=== PATIENT | male | born 1970 | race Caucasian/White ===

== ENCOUNTER 2017-03-16 11:02 | Emergency (ER) | payer OTHER ==
[2017-03-16 11:07] VITALS: BMI 28.2
--- NOTE | 2017-03-16 11:36 | PDOC ---
History of Present Illness - General Chief Complaint: Pain Stated Complaint: BACK PAIN/flank/abd Time Seen by Provider: 03/16/17 11:34 History Source: Patient Exam Limitations: No Limitations - History of Present Illness Initial Comments: 03/16/17 11:53 My chief complaint: Left lower back pain radiating to her left lower abdomen with urinary frequency at night mostly History of present illness: Pt.is a 46-year-old male with a history of renal calculi 8 years ago last episode here today complaining of left flank pain with radiation to left lower abdomen 2 weeks worse today. Patient reports that pain today is a 9 out of 10. Patient took ibuprofen in early a.m. today with without relief of pain. Patient reports that he is getting up more frequently at night to urinate 3 times which is not normal for himself. Patient denies any hematuria , dysuria or difficulty starting stream a urine. Patient denies any chills, nausea or vomiting or any fever. 03/16/17 13:39 Timing/Duration: getting worse (FOR 2 WEEKS WORSE TODAY) Severity: severe (LEFT LOWER BACK RADIATES TO LEFT LOWER QUADRANT) Associated Symptoms: reports: denies symptoms Past History - Past Medical History Allergies/Adverse Reactions: Allergies Allergy/AdvReac Type Severity Reaction Status Date / Time Penicillins Allergy Mild Rash Verified 09/07/14 06:30 Home Medications: Ambulatory Orders Naproxen [Naprosyn -] 500 mg PO BID PRN #14 tablet MDD 2 03/16/17 Phenazopyridine HCl [Pyridium] 200 mg PO TID #6 tablet 03/16/17 Other medical history: kidney stone - Surgical History Abdominal Surgery: Yes Appendectomy: Yes - Immunization History Immunization Up to Date: Yes - Suicide/Smoking/Psychosocial Hx Smoking Status: No Smoking History: Never smoked Number of Cigarettes Smoked Daily: 0 Information on smoking cessation initiated: No Hx Alcohol Use: No Drug/Substance Use Hx: No Substance Use Type: None Review of Systems - Review of Systems Able to Perform ROS?: Yes Constitutional: No: Symptoms Reported HEENTM: No: Symptoms Reported Respiratory: No: Symptoms reported Cardiac (ROS): No: Symptoms Reported ABD/GI: Yes: Other (LEFT LOWER QUADRANT TENDERNESS ) Musculoskeletal: Yes: Back Pain (LEFT FLANK AREA RADIATES TO LEFT LOWER ABDOMINAL QUADRANT) Integumentary: No: Symptoms Reported Neurological: No: Symptoms reported *Physical Exam - Vital Signs Last Vital Signs Temp Pulse Resp BP Pulse Ox 98.5 F 85 18 139/91 99 03/16/17 11:05 03/16/17 11:05 03/16/17 11:05 03/16/17 11:05 03/16/17 11:05 - Physical Exam General Appearance: Yes: Appropriately Dressed Respiratory/Chest: positive: Lungs Clear, Normal Breath Sounds. negative: Chest Tender, Respiratory Distress Cardiovascular: positive: Regular Rhythm, Regular Rate, S1, S2 Gastrointestinal/Abdominal: positive: Normal Bowel Sounds, Tender (LEFT LOWER QUADRANT), Soft, Tenderness (LEFT LOWER QUADRANT). negative: Organomegaly, Distended, Guarding, Rebound, Hepatomegaly, Spleenomegaly Musculoskeletal: positive: Normal Inspection, CVA Tenderness (L). negative: CVA Tenderness (R), Vertebral Tenderness Integumentary: positive: Normal Color Neurologic: positive: Alert, Normal Response, Responsive ED Treatment Course - LABORATORY CBC & Chemistry Diagram: 03/16/17 11:18 03/16/17 12:00 Medical Decision Making - Medical Decision Making 03/16/17 11:58 Pt.is a 46-year-old male with a history of renal calculi 8 years ago last episode here today complaining of left flank pain with radiation to left lower abdomen 2 weeks worse today. Patient reports that pain today is a 9 out of 10. Patient took ibuprofen in early a.m. today with without relief of pain. Patient reports that he is getting up more frequently at night to urinate 3 times which is not normal for himself. Patient denies any hematuria, dysuria or difficulty starting stream a urine. Patient denies any chills, nausea or vomiting or any fever. R/o RENAL CALCULI renal calculi right kidney enlarged prostate PLAN: U/A URINE C & S CBC WITH DIFF CMP CT SPIRAL RENAL fatty liver. For him M nonobstructing right renal lower pole stone. Otherwise there is no evidence of hydro-your tender for 06 or urethral stone bilaterally. Partially distended urinary bladder limiting its evaluation without gross evidence of an intraluminal stone. No evidence of bowel obstruction. A few diverticuli in the colon without evidence of acute diverticulitis. Nonvisualization of the appendix (patient had appendectomy) prominent prostate gland per Dr. Tenorio IV INSERT TORADOL 30 MG IV PUSH NOW 03/16/17 11:59 03/16/17 12:50 Laboratory Tests 03/16/17 03/16/17 03/16/17 11:18 11:18 12:00 WBC 5.6 RBC 5.31 Hgb 16.1 Hct 47.8 MCV 90.1 MCH 30.4 MCHC 33.7 RDW 14.1 Plt Count 222 MPV 8.4 Neutrophils % 54.8 Lymphocytes % 28.8 Monocytes % 10.0 Eosinophils % 5.4 H Basophils % 1.0 Sodium 139 Potassium 4.0 Chloride 104 Carbon Dioxide 28 Anion Gap 7 L BUN 12 Creatinine 0.8 Creat Clearance w eGFR > 60 Random Glucose 85 Calcium 9.2 Total Bilirubin 0.6 AST 39 H ALT 93 H D Alkaline Phosphatase 88 Total Protein 7.5 Albumin 4.2 Urine Color Yellow Urine Appearance Clear Urine pH 7.0 Ur Specific [place] Pending Urine Protein Negative Urine Glucose (UA) Negative Urine Ketones Negative Urine Blood Negative Urine Nitrite Negative Urine Bilirubin Negative Urine Urobilinogen Negative Ur Leukocyte Esterase Negative 03/16/17 12:51 03/16/17 13:39 03/16/17 13:44 will give RX for pyridium 200 mg tid ac for 2 days Naprosyn 500 mg bid prn pain # 4 tabs 03/17/17 11:51 *DC/Admit/Observation/Transfer Diagnosis at time of Disposition: Renal calculus, right, Flank pain, Abdominal discomfort in left lower quadrant - Discharge Dispostion Disposition: HOME Condition at time of disposition: Stable - Prescriptions Prescriptions: Naproxen [Naprosyn -] 500 mg PO BID PRN #14 tablet MDD 2 PRN Reason: Pain Phenazopyridine HCl [Pyridium] 200 mg PO TID #6 tablet - Referrals Referrals: Wili Salvador MD [Staff Physician] - Bryce Evangelista MD [Staff Physician] - - Patient Instructions Additional Instructions: Follow Up with your primary care provider within the next 2 days follow-up with urologist for further evaluation as soon as possible Follow up with Gastrointestinal doctor for elevated liver function tests as soon as possible ReturnTo emergency room if symptoms worsen increased pain, fever, chills, nausea or vomiting or any new symptoms develop Drink a lot a fluids especially cranberry juice Patient voiced understanding of discharge instructions and all questions were answered - Post Discharge Activity Forms/Work/School Notes: Back to Work
[2017-03-16] MEDS ORDERED: KETOROLAC TROMETHAMINE 60 MG/2 ML VIAL IVPUSH ONE (11:47)
[2017-03-16] MEDS ORDERED: KETOROLAC TROMETHAMINE 30 MG/1 ML VIAL ONE (11:49)
[2017-03-16 12:12] LABS: EOSINOPHIL 5.4 % (0-4.5); MCH 30.4 pg (25.7-33.7); MCHC 33.7 g/dl (32.0-35.9); MEAN CELL VOLUME 90.1 fl (80-96); MEAN PLT VOLUME 8.4 fl (7.5-11.1); NEUTROPHILS 54.8 % (42.8-82.8); PLATELET COUNT 222 K/MM3 (134-434); RDW 14.1 % (11.9-15.9); WHITE BLOOD COUNT 5.6 K/mm3 (4.0-10.0)
[2017-03-16 12:16] LABS: URINE APPEARANCE CLEAR; URINE BILIRUBIN NEGATIVE (NEGATIVE); URINE BLOOD NEGATIVE (NEGATIVE); URINE COLOR YELLOW; URINE GLUCOSE (UA) NEGATIVE (NEGATIVE); URINE KETONE NEGATIVE (NEGATIVE); URINE LEUK ESTERASE NEGATIVE (NEGATIVE); URINE NITRITE NEGATIVE (NEGATIVE); URINE PROTEIN NEGATIVE (NEGATIVE); URINE UROBILINOGEN NEGATIVE mg/dL (0.2-1.0)
[2017-03-16 12:31] LABS: ALBUMIN 4.2 g/dl (3.4-5.0); ANION GAP 7 (8-16); CALCIUM 9.2 mg/dL (8.5-10.1); CO2 28 mmol/L (21-32); GLUCOSE,RANDOM 85 mg/dL (74-106)
[2017-03-16 12:35] LABS: ALK PHOS 88 U/L (45-117); BILIRUBIN,TOTAL 0.6 mg/dL (0.2-1.0); CREATININE 0.8 mg/dL (0.7-1.3); SGOT/AST 39 U/L (15-37); SGPT/ALT 93 U/L (12-78); TOT PROT 7.5 g/dl (6.4-8.2)
[2017-03-16 14:17] VITALS: BP 133/88; PULSE 80; TEMP 98.2
== END 2017-03-16 14:17 | disposition home or self-care (01) ==
LOC: JER 11:02
PROC: 3E0233Z Introduction of Anti-inflammatory into Muscle, Percutaneous Approach (ICD-10-PCS; principal; 2017-03-16)
DX: N20.0 Calculus of kidney (principal); Z87.442 Personal history of urinary calculi
CPT/HCPCS: 36415; 74176; 80053; 81003; 85025; 87086; 99284-25

== ENCOUNTER 2022-04-11 04:11 | Day surgery (SDC) | payer OTHER ==
[2022-04-07 13:54] VITALS: BMI 29.0
[2022-04-11 08:11] VITALS: RESP 18
[2022-04-11] MEDS ORDERED: MIDAZOLAM HCL 2 MG/2 ML SINGLE DOSE VIAL ONE (10:18)
[2022-04-11] MEDS ORDERED: ONDANSETRON 4 MG/2 ML VIAL ONE (10:26)
[2022-04-11 10:57] VITALS: TEMP 97.8
[2022-04-11 12:27] VITALS: BP 137/79; PULSE 65
== END 2022-04-11 12:10 | disposition home or self-care (01) ==
LOC: JASU-SURG 04:11
PROVIDERS: ATTEND Urology
PROC: 0TF3XZZ Fragmentation in Right Kidney Pelvis, External Approach (ICD-10-PCS; principal; 2022-04-11 13:00)
DX: N20.0 Calculus of kidney (principal)

== ENCOUNTER 2022-09-12 04:22 | Day surgery (SDC) | payer OTHER ==
[2022-09-08 12:43] VITALS: BMI 29.9
[2022-09-12 09:42] VITALS: RESP 18
[2022-09-12] MEDS ORDERED: MIDAZOLAM HCL 2 MG/2 ML SINGLE DOSE VIAL ONE ×2 (12:00→12:04)
[2022-09-12 13:23] VITALS: BP 137/88; PULSE 66; TEMP 97.8
== END 2022-09-12 13:30 | disposition home or self-care (01) ==
LOC: JASU-SURG 04:22
PROVIDERS: ATTEND Urology
PROC: 0TF4XZZ Fragmentation in Left Kidney Pelvis, External Approach (ICD-10-PCS; principal; 2022-09-12 11:30)
DX: N20.0 Calculus of kidney (principal)